=== PATIENT | male | born 1955 | race Caucasian/White ===

== ENCOUNTER 2025-02-18 14:00 | Outpatient (OUT) | payer MEDICARE, SELFPAY ==
--- OUTSIDE RECORDS SUMMARY | 2025-02-20 07:12 | XMS_ITS | Clinical Summary ---
Author Organization [facility] Address [address] [place] [address] Care Team Providers Care Childrens Club Attendant Name Role Phone SirenaLuis Birgit NESS Primary Care Provider [phone] Joseph Howard MD Unavailable [phone] Allergies Active AllergyReactionsCriticalityNoted AvnlJmgulcosEmwcjgsxc52/16/2023 Other Reaction(s): rash and throwing up, diarrhea Dgtgqgn1303/02/2023 Other Reaction(s): upset GI Medications MedicationSigDispense QuantityRefillsLast FilledStart DateEnd DateStatus Multiple Vitamins-Minerals (multivitamin with minerals) tablet Take 1 tablet by mouth in the morning.Active Tirzepatide-Weight Management (Zepbound) 2.5 MG/0.5ML solution auto-injector Indications:Morbid obesity ([facility]),Obstructive sleep apnea,Prediabetes,BMI 50.0-59.9, adult ([facility])Inject 2.5 mg under the skin 1 (one) time per week 2 mL 5Active omeprazole (PriLOSEC) [address] capsule Indications:Gastroesophageal reflux disease without esophagitisTake 1 capsule (20 mg) by mouth in the morning. Take before meals. 90 capsule 5Active atorvastatin (Lipitor) 40 MG tablet Indications:Pure hypercholesterolemiaTAKE 1 TABLET EVERY DAY 90 tablet 5Active atorvastatin (Lipitor) 40 MG tablet Indications:Pure hypercholesterolemiaTake 1 tablet (40 mg) by mouth Daily 90 tablet 106/02/Discontinued Active Problems ProblemNoted DateDiagnosed GjxoGwwlxhxvsql69/12/2024Melanoma in situ of right upper zxmpibxbk54/20/2023Morbid ahknqwi1903/06/2023Obstructive sleep apnea 03/06/2023ure kysfflkcvogrvywtgblc94/20/6486Kmoofksxhuc92/20/2023Umbilical hernia without obstruction and without trwghqna28/20/2023ochlear implant in place03/06/2023 Overview (03/06/2023): Right Adenoma of colon at splenic hgphpzx8603/06/2023 Overview (03/06/2023): 2019- small sessile adenomatous polyp -Dr Short No path report on record Follow up 2024 ACP (advance care planning)03/06/2023 Resolved Problems ProblemNoted DateDiagnosed DateResolved DateScreening PSA (prostate specific antigen)Medicare annual wellness visit, esswujsdrc48/20/2023 06/03/2024 Encounters DateTypeDepartmentCare FovvSwgujzqwzai10/27/2025Refill [facility] [address] [place] [address] Luis Pack, DO Pure hypercholesterolemiafrom Last 3 Months Immunizations ImmunizationAdministration DatesNext DueInfluenza, High Dose Seasonal, Preservative Free03/09/2022Influenza, Injectable, MDCK, preservative free 01/21/2019Influenza, Seasonal, Quadrivalent, Rkqtvannzx00/20/2023Influenza, injectable, MDCK, preservative free, tonyhtvvzmry89/06/2021,01/22/2020Influenza, injectable, MDCK, bavrhbjuviga42/07/2019Influenza, injectable, quadrivalent 12/17/2015Influenza, injectable, quadrivalent, preservative free01/27/2017, 12/17/2015,01/15/2015Influenza, seasonal, injectable, preservative free 05/09/2018Influenza, seasonal, intradermal, preservative free01/15/2013, 02/09/2010,02/06/2009,03/11/2008Influenza, trivalent, /18/2024 Pneumococcal Conjugate PCV neumococcal Conjugate PCV Pneumococcal Polysaccharide TEGI7647Zoster, live12/07/2016 Family History Medical HistoryRelationNameCommentsSkin cancerBrotherCancerFatherTroyDiabetes FatherTroyHeart diseaseFatherTroySkin cancerFatherTroyOvarian cancerMaternal GrandmotherArthritisMotherHelenCOPDMotherHelenStrokeMotherHelenMelanomaNeg Hx RelationNameStatusCommentsBrother2 brothers (1 brother )Daughter1 daughterFatherTroyDeceased (Age 91)Maternal GrandmotherDeceasedMotherHelenSister 2 sistersSon1 son Social History Tobacco UseTypesPacks/DayYears UsedDateSmoking Tobacco: YlgrvoPggjqaitwb675 Smokeless Tobacco: Never Tobacco Cessation:Counseling Given: Not Answered Alcohol UseStandard Drinks/WeekCommentsNot Currently1 (1 standard drink = 0.6 oz pure alcohol)Not currently as of 02/27/2023UDIT-CAnswerDate RecordedQ1: How often do you have a drink containing alcohol?Monthly or less03/02/2023Q2: How many drinks containing alcohol do you have on a typical day when you are drinking?1 or Q3: How often do you have six or more drinks on one occasion?Never03/02/2023HQ-2AnswerDate RecordedPatient Health Questionnaire-2 Lxlzn598Sex and Gender InformationValueDate RecordedSex Assigned at BirthNot on fileLegal KhtTeyt8806/29/2022 7:08 PM EDTGender AxmnrzydVtre41/04/2023 6:05 PM EDTSexual KqmjjestjrkOcqbuvtl85/04/2023 6:05 PM EDTOccupationIndustryJob Start DateJob End DateRetiredNot on fileNot on fileNot on file Last Filed Vital Signs Vital SignReadingTime TakenCommentsBlood Tulpikxn656/8002 11:43 AM EST Udfrp3987 11:43 AM ESTTemperature--Respiratory Rate--Oxygen Saturation 94%06/03/2024 11:43 AM ESTInhaled Oxygen Concentration--Ddiaaz063 kg (332 lb) 06/03/2024 11:43 AM HDJAqzgdl431.8 cm (5' 10 )06/03/2024 11:43 AM ESTBody Mass Index47.64006/03/2024 11:43 AM EST Plan of Treatment DateTypeDepartmentCare Team (Latest Contact Info)Czkacvvbtus73/20/2026 10:00 AM ESTOffice Visit [facility] [address] [place] [address] Chiara Collazo MD [address] [place] [address] Health MaintenanceDue DateLast DoneCommentsCT Eyzfrnkwqiyf64/20/1957FIT-DNA 1956FIT1956FOBT1956 7021Pjoxtltsutvew90/20/1957Skin Cancer Eznycxksy85/20/1958COVID-19 Vaccine ( season)/02/2022, 06/22/2020Influenza Vaccine (#1)/, 03/06/2023, 03/09/2022, Additional history oryyibFllomfblmmx09, 07/10/2013Colorectal Cancer Pqikzvbpo44/30/2030Pneumococcal Vaccine: 65+ LrlvrZzvduzsos55/14/2024, 03/09/2022, 05/05/2008 Procedures Procedure NamePriorityDate/TimeAssociated DiagnosisCommentsCOLONOSCOPYRoutine 04/15/2020 12:00 PM EST from Last 3 Months or Most Recently Relevant to Health Maintenance Results * Colonoscopy (04/15/2020 12:00 PM EST)Anatomical RegionLateralityModality EndoscopySpecimen (Source)Anatomical Location / LateralityCollection Method / VolumeCollection TimeReceived Time04/15/2020 12:00 PM EST Narrative 04/15/2020 12:00 PM EST PERFORMED AT [facility] LOCATION:[id number] polyp Procedure Note CONVERSION, GENERIC - 08/31/2022 PERFORMED AT [facility] LOCATION:[id number] polyp Authorizing ProviderResult TypeResult StatusRobert J Sirena DOENDOSCOPY PROCEDURE ORDERABLESFinal Result from Last 3 Months or Most Recently Relevant to Health Maintenance Insurance Advance Directives * Full Code (Latest Code Status on File) Date ActivatedDate FikhrmbvckqGdtqllla25/18/2024 9:05 AM Care Teams Team MemberRelationshipSpecialtyStart DateEnd Date Luis Pack DO [address] [facility] [address] [place] [address] PCP - GeneralInternal Medicine08/23/22 Joseph Howard MD [address] [facility] [address] [place] [address] Referring PhysicianSbrea community hospital Hewncivu74/18/24
--- OUTSIDE RECORDS SUMMARY | 2025-02-20 07:12 | XMS_ITS | Clinical Summary ---
Author Organization [facility] Address [address] [place] [address] Phone Care Team Providers Care Binder Coverstitch Name Role Phone Unavailable Primary Care Provider Unavailabl e Social History Tobacco UseTypesPacks/DayYears UsedDateSmoking Tobacco: Never AssessedSex and Gender InformationValueDate RecordedSex Assigned at BirthNot on fileLegal Sex Male03/12/2022 5:22 PM ESTGender IdentityNot on fileSexual OrientationNot on file Plan of Treatment Not on file
--- OUTSIDE RECORDS SUMMARY | 2025-02-20 07:12 | XMS_ITS | Encounter Summary ---
Author Organization [facility] Address [address] [place] [address] Care Team Providers Care Biology Faculty Member Name Role Phone Luis Pack DO Primary Care Provider Joseph Howard MD Unavailable [phone] Reason for Visit * ReasonCommentsMed Refill Encounter Details DateTypeDepartmentCare Team (Latest Contact Info)Rloaensbdsf31/27/2025Refill [facility] [place] [facility] [address] [facility] [address] [place] [id number] Luis Pack DO [address] [facility] [address] [place] [address] Pure hypercholesterolemia Social History Tobacco UseTypesPacks/DayYears UsedDateSmoking Tobacco: UcuzajRvzwctzzlr805 Smokeless Tobacco: NeverAlcohol UseStandard Drinks/WeekCommentsNot Currently1 (1 standard drink = 0.6 oz pure alcohol)Not currently as of 3AUDIT-CAnswer Date RecordedQ1: How often do you have a drink containing alcohol?Monthly or less03/02/2023Q2: How many drinks containing alcohol do you have on a typical day when you are drinking?1 or Q3: How often do you have six or more drinks on one occasion?Never03/02/2023HQ-2AnswerDate RecordedPatient Health Questionnaire-2 Vqafb71505/04/2023Sex and Gender InformationValueDate RecordedSex Assigned at BirthNot on fileLegal MgqVdur1206/29/2022 7:08 PM EDTGender Identity Male10/18/2022 6:05 PM EDTSexual AvaaysstdyuIxmlgnqg21/04/2023 6:05 PM EDT OccupationIndustryJob Start DateJob End DateRetiredNot on fileNot on fileNot on filedocumented as of this encounter Miscellaneous Notes * Telephone Encounter - Malik German MA - 02/10/2025 8:22 AM EDT Rx sent documented in this encounter Plan of Treatment DateTypeDepartmentCare Team (Latest Contact Info)Wawwexfazmz44/20/2026 10:00 AM ESTOffice Visit [facility] [place] [facility] [address] [place] [phone] Chiara Collazo MD [address] [place] [address] documented as of this encounter Visit Diagnoses Diagnosis Pure hypercholesterolemia documented in this encounter Care Teams Team MemberRelationshipSpecialtyStart DateEnd Date Luis Pack DO [address] [place] [address] PCP - GeneralInternal Medicine08/23/22 Joseph Howard MD [address] [place] [address] Referring PhysicianSleep Sciwvtdt93/18/24documented as of this encounter
--- OUTSIDE RECORDS SUMMARY | 2025-02-20 07:12 | XMS_ITS | Clinical Summary ---
Author Organization [facility] Address [address] [place] [address] Care Team Providers Care Manager Project Management Name Role Phone Luis Pack DO Primary Care Provider Jane Rivera, PhD Unavailable [phone] Marjan Howard INVESTMENTS MANAGER Unavailable [phone] Allergies Active AllergyReactionsCriticalityNoted DjyiSskvbdpyZitmduuTukdqkok59/12/2019 BupropionGI Upset07/27/2018 Medications MedicationSigDispense QuantityRefillsLast FilledStart DateEnd DateStatus atorvastatin (LIPITOR) 40 mg tablet Take 40 mg by mouth every other day.Active cholecalciferol (VITAMIN D3) 5,000 unit tab Take 5,000 Units by mouth every other day.Active Omeprazole 40 mg capsule Take 40 mg by mouth. One before meals as needed Active BIPAP Used at bedtimeActive fluticasone (FLONASE) 50 mcg/actuation nasal spray Use 1 Mathis in each nostril twice daily. 1 Bottle 07/27/2018Active Additional Information Patient not taking.Reason: No Longer Needed - PRN Medication, Reported on 07/29/2024 Multivitamin capsule Take 1 capsule by mouth once daily.Active acetaminophen 325 mg cap Take by mouth.Active INV SEMAGLUTIDE, OZEMPIC,, 2 MG/1.5 ML, PEN (IRB 20-853) Inject subcutaneously one time a week.Active SEMAGLUTIDE, WEIGHT LOSS, SUBCUTANEOUS 03/17/2024ctive Active Problems ProblemNoted DateDiagnosed DateMixed hearing loss, sqysbmaix25/18/2024Status post placement of bone anchored hearing aid (BAHA)2Cholesteatoma of right ear2Class 3 severe obesity due to excess calories with serious comorbidity and body mass index (BMI) of50.0 to 59.9 in adult07/19/2021 Assessment & Plan (07/13/2023 7:41 AM EDT): Assessment: Body mass index is 51.32 kg/m??. History of COVID-1902OSA (obstructive sleep apnea)07/19/2021 Assessment & Plan (07/13/2023 7:44 AM EDT): Assessment: Compliant with BiPAP Former lbimfa6507/19/2021ost-operative xrmthyvprltw22/20/2019Mixed conductive and sensorineural hearing loss of right ear with restricted hearing of left ear 08/28/2018Sensorineural hearing loss (SNHL) of left ear with restricted hearing of right ear08/28/2018Dysfunction of both eustachian tubes07/27/2018Chronic allergic otitis media of both ears07/27/2018Other krghrfnmkebgfc64/23/2017 Assessment & Plan (07/13/2023 7:40 AM EDT): Assessment: Controlled with statin. Monitored per PCP. Immunizations ImmunizationAdministration DatesNext Dueinfluenza (IIV3) vaccine, trivalent, PF (AFLURIA, FLUARIX, FLULAVAL, FLUVIRIN, FLUZONE)05/09/2018influenza (IIV4) vaccine, age 6 mo - 64 yr, quadrivalent, PF (AFLURIA, FLUARIX, FLULAVAL, FLUZONE)01/27/2017,01/15/2015influenza (IIV4) vaccine, quadrivalent (AFLURIA, FLULAVAL, FLUZONE)12/17/2015influenza (ccIIV3) vaccine, age 6+ mo, trivalent, PF (FLUCELVAX)01/21/2019influenza (ccIIV4) vaccine, age 6+ mo, quadrivalent, PF (FLUCELVAX)01/20/2021,01/22/2020zoster (ZVL) vaccine, live (ZOSTAVAX)12/07/2016 Family History Medical HistoryRelationCommentsCataractBrotherOther-ear problemsFatherCataract OtherCataractSisterAnesthesia ProblemsNo Family HistoryRelationStatusComments BrotherFatherOtherSister Social History Tobacco UseTypesPacks/DayYears UsedDateSmoking Tobacco: FormerCigarettes2.165586 - 1996Smokeless Tobacco: Never Tobacco Cessation:Counseling Given: Not Answered Alcohol UseStandard Drinks/WeekCommentsYes0 (1 standard drink = 0.6 oz pure alcohol)one or 2 beers every few months.AUDIT-CAnswerDate RecordedQ1: How often do you have a drink containing alcohol?2-4 times a month11/27/2019Average Number of DrinksNot on file11/27/2019Frequency of Binge DrinkingNot on file11/27/2019 PHQ-2AnswerDate RecordedPHQ2 Vlcyu70906/06/2018Area Deprivation IndexAnswerDate RecordedNational Score (1-100), lower number is lower zhyx175907/12/2023State Score (1-10), lower number is lower ilxs1894Data from: https://www.neighborhoodatlas.medicine.[facility].edu/. Last address used for hxsnrxbmhzx[address]07/12/2023Sex and Gender InformationValueDate Recorded Sex Assigned at PpmoiYnvy98/24/2021 2:34 PM ESTLegal LafSdfa8407/06/2018 1:31 PM EDTGender YnxzzgslStzw01/24/2021 2:34 PM ESTSexual OrientationNot on file Last Filed Vital Signs Vital SignReadingTime TakenCommentsBlood Rpfdkiie470/6307 9:13 PM EDT Feeas2336 9:02 PM KJAWzlfhlfeiaa25.1 ??C (97 ??F)10/26/2023 9:13 PM EDT Respiratory Rqzm6695 9:13 PM EDTOxygen Rqxyjzcrwr63%10/26/2023 9:13 PM EDTInhaled Oxygen Concentration--Gqnmtv380.9 kg (367 lb 15.2 oz)07/13/2023 7:38 AM RIFTmbuez681.3 cm (5' 11 )07/13/2023 7:38 AM EDTBody Mass Index51.32 07/13/2023 7:38 AM EDT Plan of Treatment DateTypeDepartmentCare Team (Latest Contact Info)Jtvpmwxolzg67/15/2026 9:00 AM ESTOffice Visit [facility] [address] [place] [address] Jeremiah Hassan MD [address] [place] [address] Diagnostics, [facility] [address] [address] *YEARLY, DFE/JAN08/04/2025 10:05 AM EDTOffice Visit Otolaryngology [address] [facility] [address] [address] Marjan Ramon PA-C [address] [place] [address] one year follow up regarding earsHealth MaintenanceDue DateLast DoneComments Abdominal Aortic Aneurysm Hhrcdjfxb75/20/1957Anxiety Dsiuguwmo54/20/1975 Depression Pobluthhu89/20/1975Hepatitis C Roxymcbyz92/20/1975DTaP,Tdap,Td Vaccine (1 - Tdap)12/05/1975CT Alfaewrlnuvp24/20/2002Cologuard (FIT-DNA) 12/04/20019273Nytgqnnzocm84/20/2002Colorectal Cancer Usviuhlnk81/20/2002Fecal Occult Blood12/04/20018659Amnsplgbllkfn77/20/2002RSV Vaccine (1 - Risk 60-74 years 1-dose series)2016Shingrix Vaccine (2 of 3)Medicare Annual Wellness Visit11/15/2021dvance Directive Kwggjyzxcl74/01/2025Covid-19 Vaccine (3 - season)/02/2022, 06/22/2020Influenza Vaccine (#1) 511/, 03/06/2023, 03/09/2022, Additional history existsDiabetes Ogdbftigz27/, 08/30/2023, 04/05/2019, Additional history exists Lipid Kmyupfwdm73/rostate Cancer Screening Discussion /07/2023, 08/30/2023neumococcal Vaccine: 50+Xuuastoto22/14/2024, 03/09/2022, 05/05/2008 Medical Devices ImplantedTypeAreaManufacturerDevice [facility] Expiration DateModel / Serial / PhjVmq-Zj-Y-Kind Implant - [id number] Implanted:Qty: 1 on 04/04/2019 by Pascale Stoner MD at [facility] Right: EarOTICON ANRIMHO8806/27/2022M52171 / / [id number]:[id number] One Of A Kind Implant Implanted:Qty: 1 on 04/04/2019 at [facility] 3 SUPER POWER SP / / Gas Ispan Constellation Intraocular Vision System C3f8 125gm - [id number] Implanted:Qty: 1 on 07/14/2023 by Jeremiah Hassan MD at [facility] Left: EyeALCON LABS TYOLGPNJ79/31/[id number] / / [id number]:16% U8B7Woatok 2.1mm 1mm Silicone 70mm Retinal Round Sterile - [id number] Implanted:Qty: 1 [facility] EyeDUTCH OPHTHALMIC [facility]12/16/2027S3018 / / [id number] Silicone 125x3.5x.75mm Scleral Style 41 - [id number] Implanted:Qty: [facility] EyeDUTCH OPHTHALMIC [facility]2-09 / / [id number] Ispan Constellation Intraocular Vision System C3f8 125gm - [id number] Implanted:Qty: 1 on 10/26/2023 by Petra Nolasco MD at [facility] CLARISSE LABS NBAUSGIZ06/31/[id number] / / [id number] 4mm Silicone Scleral Sterile - [id number] Implanted:Qty: 1 on 10/26/2023 by Petra Nolasco MD at [facility] Right: EyeDUTCH OPHTHALMIC [place]05/17/2028S2971 / / [id number] Silicone 1 X 2.1 X30 Style #72 Implanted:Qty: 1 on 10/26/2023 by Petra Nolasco MD at [facility] Right: EyeDUTCH OPHTHALMIC [place]992-30 / / [id number] Procedures Procedure NamePriorityDate/TimeAssociated DiagnosisCommentsBASIC METABOLIC PANEL STAT106/06/2018 1:15 AM EST from Last 3 Months or Most Recently Relevant to Health Maintenance Results * (ABNORMAL) BASIC METABOLIC PNL (04/05/2019 1:15 AM EST)ComponentValueRef Range Test MethodAnalysis TimePerformed AtPathologist OaluxockuQkqjmft413(H)74 - 99 mg/dL04/05/2019 1:51 AM [facility] LaboratoriesComment: The [place] Diabetes Association (ADA) provides guidance for cutoff values for fasting glucose and random glucose. The ADA defines fasting as no caloric intake for at least 8 hours. Fasting plasma glucose results between 100 to 125 mg/dL indicate increased risk for diabetes (prediabetes). Fasting plasma glucose results greater than or equal to 126 mg/dL meet the criteria for diagnosis of diabetes. In the absence of unequivocal hyperglycemia, results should be confirmed by repeat testing. In a patient with classic symptoms of hyperglycemia or hyperglycemic crisis, random plasma glucose results greater than or equal to 200 mg/dL meet the criteria for diagnosis of diabetes. Reference: Standards of Medical Care in Diabetes 2016, [place] Diabetes Association. Diabetes Care. 2016.39(Suppl 1). BUN30(H)9 - 24 mg/dL04/05/2019 1:51 AM [facility] Creatinine1.23(H)0.73 - 1.22 mg/dL04/05/2019 1:51 AM [facility] AauvmytvfjweMazxum342893 - 144 mmol/L106/06/2018 1:51 AM [facility] LaboratoriesPotassium4.73.7 - 5.1 mmol/L106/06/2018 1:51 AM [facility] XynfobuafmfxBxiryfwy71874 - 105 mmol/L106/06/2018 1:51 AM [facility] IrptcgvmriuxUE09626 - 30 mmol/L106/06/2018 1:51 AM [facility] LaboratoriesAnion Qud154 - 18 mmol/L106/06/2018 1:51 AM [facility] LaboratoriesCalcium9.28.5 - 10.2 mg/dL04/05/2019 1:51 AM [facility] LaboratorieseGFR->6004/05/2019 1:51 AM [facility] LaboratorieseGFR-All Other Races60.04/05/2019 1:51 AM [facility] LaboratoriesComment: eGFR (Estimated GFR) Units of measure: mL/min/1.73 meters squared eGFR is derived from the reexpressed MDRD Study equation using the following parameters: serum creatinine, age, gender and race. The creatinine assay has been calibrated to be traceable to IDMS. An eGFR <60 mL/min/1.73m2 for >3 months is consistent with chronic kidney disease. Refer to KDOQI guidelines for clinical interpretation. In patients with unstable renal function, e.g. those with acute kidney injury, the eGFR may not accurately reflect actual GFR. Specimen (Source)Anatomical Location / LateralityCollection Method / Volume Collection TimeReceived TimeBlood specimen (specimen)BLOOD SPECIMEN / Unknown 04/05/2019 1:15 AM EST04/05/2019 1:31 AM EST Narrative Authorizing ProviderResult TypeResult StatusIndio Foss MDLABORATORYFinal ResultPerforming OrganizationAddressCity/State/ZIP CodePhone Number [facility] [address] [place] [address] [facility] [address] [place] [address] from Last 3 Months or Most Recently Relevant to Health Maintenance Insurance Care Teams Team MemberRelationshipSpecialtyStart DateEnd Date Luis Pack DO [address] [place] [address] PCP - GeneralInternal Medicine07/06/18 Jane Rivera Aud, PhD [address] [facility] [place] [address] Care PartnerAudiology11/07/23 Marjan Howard CNP [address] [place] [address] ReferringInternal Bxxvmupx34/21/24
== END 2025-02-18 14:01 | disposition home or self-care (01) ==
LOC: SLEEP 02-20 07:09
PROVIDERS: Family Provider Internal Medicine; PCP Internal Medicine Critical Care Medicine; Visit Provider Internal Medicine Critical Care Medicine
DX: G47.33 Obstructive sleep apnea (adult) (pediatric) (principal)
CPT/HCPCS: 95806